=== PATIENT | male | born 1960 | race Caucasian/White ===

== ENCOUNTER 2017-05-24 15:50 | Day surgery (SDC) | payer BC, OTHER ==
[2017-05-24] MEDS ORDERED: RINGER'S SOLUTION,LACTATED 1,000 ML IV PRN ×2 (15:54→18:15)
[2017-05-24] MEDS ORDERED: DEXTROSE 5%-0.5 NORMAL SALINE 1,000 ML IV ONE (16:25)
[2017-05-24] MEDS ORDERED: ceFAZolin SODIUM 1 GM VIAL IV ONE (16:45)
[2017-05-24] MEDS ORDERED: BUPIVACAINE HCL/EPINEPHRINE 50 ML VIAL IJ ONE ×2 (17:01)
[2017-05-24] MEDS ORDERED: oxyCODONE HCL/ACETAMINOPHEN 1 TAB TABLET PO ONE (18:15)
[2017-05-24] MEDS ORDERED: oxyCODONE HCL/ACETAMINOPHEN 1 TAB TABLET ONE (18:33)
--- NOTE | 2017-05-24 18:39 | OR ---
Operative Report - Dictated Report Narrative: OPERATIVE REPORT DATE OF OPERATION: 05/24/2017 PREOPERATIVE DIAGNOSIS: Perirectal abscess POSTOPERATIVE DIAGNOSIS: Perirectal/pelvic abscess OPERATION: Rectal exam under anesthesia with dilation of tract and drainage of pelvic abscess; placement of 26 [place] Malecot catheter SURGEON: Martha Parnell MD ANESTHESIA: MAC [place] [employer] 0.25% Marcaine with epinephrine 20 mL injected local anesthetic INDICATIONS FOR PROCEDURE: The patient is a 56-year-old male began having perirectal pain on or about 05/18/2017. He was seen in the office yesterday when he started having drainage. He was started on Augmentin. He had his dialysis today and was brought back for reexam to determine if a formal incision and drainage would be needed. There is a large amount of drainage and to much discomfort to examine without anesthetic. FINDINGS: 3 mm fistulous opening just anterior and to the right of the anus opening into an 8 cm abscess cavity tracking up into the pelvis. No obvious connection to the dentate line or bowel. NARRATIVE OF PROCEDURE: The patient was identified preoperatively, the surgical site was identified, and prior to the administration of anesthetic a multidisciplinary timeout was observed. The patient in the left lateral position and after the administration of intravenous sedation the perineum was prepped with Betadine solution and isolated with 4 sterile towels. Inspection of the external aspect of the anus revealed a 3 mm opening anterior and to the right at the margin of the anoderm. There was a large amount of foul-smelling purulent drainage. A rectal retractor was placed. A small probe was then placed in the fistulous opening and directed superiorly. The probe fell into a large cavity which tracked to the right and superiorly in the pelvis. There was no obvious connection to the dentate line. The cavity measured approximately 8 cm in depth. The track was sufficiently close to the sphincter that an incision was not felt prudent. The track was dilated with the tip of a mosquito until a suction cup inserted. A large amount of purulent material was removed. Culture was submitted. The cavity was then irrigated with 1 L of bacitracin-containing saline until the return was clear. Again there was no connection to the rectum or bowel superiorly demonstrated. A 26 [place] Malecot catheter was then guided into the cavity, trimmed, and secured to the left buttock anteriorly with a 2-0 nylon suture. A dressing of ABDs and mesh pants was applied. The operative procedure was terminated at this point. The patient tolerated the anesthetic and procedure well without complication. There was no measurable blood loss. All counts were correct. A culture was submitted. The patient was transferred back to the ambulatory surgery area awake in stable condition. The patient remained stable throughout appeared postoperative observation. He had discomfort but that was controlled with by mouth Percocet. There was no appreciable drainage on the dressing. The patient was discussed with Dr. Matos at the [facility] and accepted for transport there by ground ambulance for further care. Reason for transfer is large pelvic abscess in a dialysis patient who may require further specialized surgery at the facility where he already has established care. Reviewed and electronically signed
[2017-05-24 20:36] VITALS: BP 134/62
== END 2017-05-24 15:51 | disposition home or self-care (01) ==
LOC: AMB 15:50
PROVIDERS: ATTEND Surgery
PROC: 0D9P70Z Drainage of Rectum with Drainage Device, Via Natural or Artificial Opening (ICD-10-PCS; principal; 2017-05-24 16:00)
DX: K61.1 Rectal abscess (principal); I11.0 Hypertensive heart disease with heart failure; I50.9 Heart failure, unspecified; E78.5 Hyperlipidemia, unspecified; I25.10 Atherosclerotic heart disease of native coronary artery without angina pectoris; Z87.891 Personal history of nicotine dependence; Z68.21 Body mass index [BMI] 21.0-21.9, adult

== ENCOUNTER 2017-06-04 20:59 | Emergency (ER) | payer BC ==
--- NOTE | 2017-06-04 21:23 | ERNOTE ---
Chest Pain/Cardiac HPI Date of Service: 06/04/17 Chief Complaint: Chest Pain Time Seen by Provider: 06/04/17 21:09 Source: patient Exam Limitations: no limitations Immunizations: IMMUNIZATION HX Immunizations Up to Date Yes History of Influenza Vaccine Yes Hx Pneumococcal Vaccination No Allergies/Adverse Reactions: Allergies No Known Allergies Allergy (Verified 05/24/17 16:05) Home Medications: HOME MEDICATIONS Atorvastatin Calcium [Lipitor] 20 mg PO HS 09/02/13 [Last Taken Unknown] Amoxicillin/Potassium Clav [Augmentin 875-125 Tablet] 1 tab PO Q12H 05/24/17 [ Last Taken Unknown] Aspirin [Aspirin Enteric Coated] 81 mg PO DAILY 05/24/17 [Last Taken Unknown] Carvedilol [Coreg] 3.125 mg PO BID 05/24/17 [Last Taken Unknown] oxyCODONE HCL/ACETAMINOPHEN [Percocet 5 MG/325 MG] 1 tab PO QID PRN 05/24/17 [ Last Taken Unknown] Narrative: This is a 56-year-old male with significant past medical history for his renal cell carcinoma patient was recently discharged from dialysis. Patient tonight at rest at approximately 8:30 PM felt a pressure-like substernal chest pain and slightly to the left of the sternum which did not radiate anywhere. After this episode of chest pain patient became diaphoretic and felt short of breath. Subsequently he decided to come to the emergency room. Patient presented with private vehicle. Patient does state that he feels that he has been retaining fluids. Review of Systems - Review of Systems Constitutional: Present: diaphoresis EYE: Present: no symptoms reported ENT: Present: no symptoms reported Respiratory: Present: See HPI, shortness of breath - shortness of breath is only reported one patient had his chest pain. Cardiology: Present: See HPI, chest pain Gastrointestinal/Abdominal: Present: no symptoms reported Genitourinary: Present: no symptoms reported Musculoskeletal: Present: no symptoms reported Skin: Present: no symptoms reported - Patient's Past Medical History Patient History - Medical: GERD, Renal Disease, Other Patient History - Cardiac/Respiratory: CHF, Hyperlipidemia, Myocardial Infarction Patient History - Cancer: Bladder, Kidney Patient History - Surgical Procedures: Colonoscopy, Cardiac stent, Vasectomy, Other Patient History - Other: None - Family History Father Family History - Medical: , No pertinent hx Family History - Cardiac/Respiratory: No pertinent hx Family History - Cancer: Lung Grandfather-Paternal Family History - Medical: , No pertinent hx Family History - Cardiac/Respiratory: Cardiac Arrest, Myocardial Infarction Family History - Cancer: No pertinent family hx Mother Family History - Medical: , Other Family History - Cardiac/Respiratory: CHF, CVA/Stroke, Pneumonia Family History - Cancer: No pertinent family hx - Social History Living Situations: home Abuse History: No History of abuse Psych History: No pertinent hx Smoking Status: Former smoker Have you smoked in the past 12 months: No Do you dip or chew tobacco: No Patient requests Smoking Cessation Consult: No Initiate information on Smoking Cessation: No Alcohol Use: none Drug Use: none - Immunizations Immunizations Up to Date: Yes Hx Pneumococcal Vaccination: No History of Influenza Vaccine: Yes Physical Exam - Physical Exam General Appearance: Present: alert, no apparent distress, other - patient appears slightly pale with conjunctiva pallor this is the first time this examiner has seen the patient. At the time of examination patient has actually no chest pains and he is resting comfortably. Head Exam: Present: normal inspection, no evidence of injury Neck: Present: normal inspection, nontender, supple Respiratory: Present: no respiratory distress, normal breath sounds, no accessory muscle use, chest nontender, lungs clear Cardiovascular/Chest: Present: regular rate, rhythm, no murmur, normal peripheral pulses Gastrointestinal/Abdominal: Present: normal bowel sounds, nondistended, soft - on examination of the belly bowel sounds are normal however when I palpate the belly is soft and the patient states "I always have some abdominal discomfort it no more than usual" is deaf only no rebound on examination of the belly. Extremity Exam: Present: normal inspection, normal range of motion, no edema ED Progress - Results and Orders Patient's Lab Results:: I have reviewed the patient's lab results. - Vital Signs Patient's Vital Signs:: I have reviewed the patient's vital signs. Vital Signs: Vital Signs 06/04/17 21:05 Temperature 36.9 C Pulse Rate 82 Respiratory 13 Rate Blood Pressure 125/69 O2 Sat by Pulse 98 Oximetry - EKG EKG: NSR - I do not see any ST or T-wave changes there are Q waves in V2. - X-Ray X-Ray #1 X-Ray: chest - Progress/Reassessment Chief Complaint: Chest Pain Plan - Plan Plan: Patient's BNP is severely elevated at 14,000 and his first set of enzymes is negative at this hour hospitalist with consult to to admit the patient for chest pain and congestive heart failure Departure Clinical Impression: Chest pain CHF (congestive heart failure) Qualifiers: Congestive heart failure type: unspecified congestive heart failure type Congestive heart failure chronicity: acute Qualified Code(s): I50.9 - Heart failure, unspecified - Departure Disposition: [facility] Condition: Stable Referrals: Fifi Garcia MD [Primary Care Provider] -
[2017-06-04 21:26] LABS: Hematocrit 28.5 % (42.0-52.0); Hemoglobin 8.8 gm/dL (13.5-18.0); Mean Cell Volume 112.6 fl (78-100); Mean Corpuscular Hemoglobin 34.8 pg (27-31); Mean Corpuscular Hgb Conc 30.9 g/dl (32-36); Mean Platelet Volume 8.4 fl (6.0-9.5); Neutrophil # 3.5 K/mm3 (1.3-6.0); Neutrophil % 64.2 % (42-75.0); Platelet Count 293 K/mm3 (150-450); Red Blood Count 2.53 M/mm3 (4.7-6.0); Red Cell Distribution Width 15.9 % (11.5-14.0); White Blood Count 5.5 K/mm3 (4.0-10.5)
[2017-06-04 21:47] LABS: Troponin I 0.026 ng/ml (0.00-0.10)
[2017-06-04 21:53] LABS: Albumin * 2.2 gm/dl (3.4-5.0); Anion Gap 10.6 mmol/L (6.8-13.8); BUN/Creatinine Ratio 7.8 (9.0-21.6); Bilirubin, Total 0.2 mg/dL (0.0-1.1); CKMB 0.7 ng/mL (0.0-9.0); Ca. Corrected For Albumin 9.6 mg/dL (8.4-10.2); Calcium * 8.5 mg/dL (7.9-10.9); Carbon Dioxide 32.4 mmol/L (24-32.6); Total Protein 5.6 gm/dL (6.2-8.2)
[2017-06-04 22:49] VITALS: BP 123/68
== END 2017-06-04 22:35 | disposition left against medical advice (07) ==
LOC: ER 20:59 → UNDOADMOB 22:06 → MS 22:06 → UNDOADMOB 22:08 → ER 22:35
DX: I50.9 Heart failure, unspecified (principal); R07.9 Chest pain, unspecified; Z85.51 Personal history of malignant neoplasm of bladder; Z85.528 Personal history of other malignant neoplasm of kidney; I25.2 Old myocardial infarction; E78.5 Hyperlipidemia, unspecified; Z87.891 Personal history of nicotine dependence; Z53.29 Procedure and treatment not carried out because of patient's decision for other reasons; Z95.5 Presence of coronary angioplasty implant and graft

== ENCOUNTER 2017-07-24 12:30 | Emergency (ER) | payer BC, OTHER ==
[2017-07-24] MEDS ORDERED: ACYCLOVIR 800 MG TABLET PO ONE (12:51)
[2017-07-24] MEDS ORDERED: ACYCLOVIR 800 MG TABLET ONE ×2 (12:56→13:07)
--- NOTE | 2017-07-24 12:56 | ERNOTE ---
Medical Problem HPI - Narrative Date of Service: 07/24/17 - General Chief Complaint: General Assessment Time Seen by Provider: 07/24/17 12:43 Source: patient Exam Limitations: no limitations - Immun/Allergies/Home Medications Immunizations: IMMUNIZATION HX Immunizations Up to Date Yes History of Influenza Vaccine Yes Hx Pneumococcal Vaccination No Allergies/Adverse Reactions: Allergies No Known Allergies Allergy (Verified 07/24/17 12:37) Home Medications: HOME MEDICATIONS Atorvastatin Calcium [Lipitor] 20 mg PO HS 09/02/13 [Last Taken Unknown] Aspirin [Aspirin Enteric Coated] 81 mg PO DAILY 05/24/17 [Last Taken Unknown] Carvedilol [Coreg] 3.125 mg PO BID 05/24/17 [Last Taken Unknown] Acyclovir [Zovirax] 800 mg PO TID #21 tablet 07/24/17 [Last Taken Unknown] Potassium Chloride [K-Dur] 20 meq PO DAILY 07/24/17 [Last Taken Unknown] - History of Present History Narrative: pt presents to er with c/o cold sores on lower lip. has been using abreva otc at home without success. wanting to start on oral medications for cold sore. Timing: constant Severity: moderate Review of Systems - Review of Systems Constitutional: Present: no symptoms reported EYE: Present: no symptoms reported ENT: Present: no symptoms reported Respiratory: Present: no symptoms reported Cardiology: Present: no symptoms reported Gastrointestinal/Abdominal: Present: no symptoms reported Genitourinary: Present: no symptoms reported Musculoskeletal: Present: no symptoms reported Skin: Present: lesions Neurological: Present: no symptoms reported Endocrine: Present: no symptoms reported Hematologic/Lymphatic: Present: no symptoms reported Psych: Present: no symptoms reported All Other Systems: All systems neg except as marked - Patient's Past Medical History Patient History - Medical: GERD, Renal Disease, Other Patient History - Cardiac/Respiratory: CHF, Hypertension, Hyperlipidemia, Myocardial Infarction Patient History - Cancer: Bladder, Kidney Patient History - Surgical Procedures: Colonoscopy, Cardiac stent, Vasectomy, Other Patient History - Other: None - Family History Father Family History - Medical: , No pertinent hx Family History - Cardiac/Respiratory: No pertinent hx Family History - Cancer: Lung Grandfather-Paternal Family History - Medical: , No pertinent hx Family History - Cardiac/Respiratory: Cardiac Arrest, Myocardial Infarction Family History - Cancer: No pertinent family hx Mother Family History - Medical: , Other Family History - Cardiac/Respiratory: CHF, CVA/Stroke, Pneumonia Family History - Cancer: No pertinent family hx - Social History Living Situations: home Abuse History: No History of abuse Psych History: No pertinent hx Smoking Status: Former smoker Have you smoked in the past 12 months: Yes Do you dip or chew tobacco: No Alcohol Use: none Drug Use: none - Immunizations Immunizations Up to Date: Yes Hx Pneumococcal Vaccination: No History of Influenza Vaccine: Yes Physical Exam - Physical Exam General Appearance: Present: wd/wn, alert, severe distress Head Exam: Present: normal inspection, no evidence of injury Eye Exam: Normal inspection: bilateral Ears, Nose, Throat: Present: normal except - - herpetic lesions on lower lip Neck: Present: normal inspection, nontender Respiratory: Present: no respiratory distress, normal breath sounds, no accessory muscle use Cardiovascular/Chest: Present: regular rate, rhythm, normal peripheral pulses Gastrointestinal/Abdominal: Present: nontender, nondistended, soft Rectal Exam: Present: deferred Male Genitals Exam: Present: deferred Back Exam: Present: normal inspection, no vertebral tenderness Extremity Exam: Present: normal inspection, non-tender Neurological Exam: Present: alert, oriented, normal mood/affect Skin Exam: Present: normal color, warm/dry ED Progress - Date and Time Seen: Date and Time: 07/24/17 12:53 creatinine clearance done 06/30/17 was 19. thus acyclovir to be dose at 800 mg tid. - Vital Signs Vital Signs: Vital Signs 07/24/17 12:38 Temperature 37.2 C Pulse Rate 80 Respiratory 16 Rate Blood Pressure 124/61 O2 Sat by Pulse 97 Oximetry - Progress/Reassessment Chief Complaint: General Assessment Progress:: Re-examined Departure Clinical Impression: Cold sore - Departure Disposition: Home self-care Condition: Good Instructions: Cold Sore, [id number] Additional Instructions: acyclovir 800 mg - 1 tab by mouth 3 times a day. first dose given in the ER. Referrals: Fifi Garcia MD [Primary Care Provider] - Prescriptions: Acyclovir [Zovirax] 800 mg PO TID #21 tablet
[2017-07-24] MEDS ORDERED: ACYCLOVIR 800 MG TABLET PO SCH (13:00)
[2017-07-24 13:10] VITALS: BP 122/65
== END 2017-07-24 13:08 | disposition home or self-care (01) ==
LOC: ER 12:30
DX: K21.9 Gastro-esophageal reflux disease without esophagitis; I10 Essential (primary) hypertension; Z87.891 Personal history of nicotine dependence; B00.1 Herpesviral vesicular dermatitis; E78.5 Hyperlipidemia, unspecified; I25.2 Old myocardial infarction; N28.9 Disorder of kidney and ureter, unspecified